=== PATIENT | male | born 1945 | race Caucasian/White ===

== ENCOUNTER 2020-02-17 17:29 | Emergency (ER) | payer MEDICARE, SELFPAY ==
--- NOTE | ~2020-02-17 | XR_ITS ---
XR finger 4th LT min 2V DATE: 02/17/2020 18:47 INDICATION: Slammed fourth digit intra-articular. Distal laceration. TECHNIQUE: 3 views COMPARISON: None FINDINGS: There is a laceration of the distal fourth digit. No radiopaque foreign body is detected. 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 No fracture or dislocation, periosteal reaction or bone destruction. IMPRESSION: Distal fourth digit soft tissue laceration; no radiopaque foreign body, fracture or dislo cation Reviewed, dictated and finalized at location A. IMPRESSION: Distal fourth digit soft tissue laceration; no radiopaque foreign b chuck, fracture or dislocation
[2020-02-17 17:30] VITALS: BP 145/75; PULSE 63; RESP 18; TEMP 37.1; O2SAT 100
[2020-02-17] MEDS: TETANUS,DIPHTHERIA,AC PERTUSSIS ADULT (0.5 ML) BOOSTRIX IM (18:28)
--- NOTE | 2020-02-17 18:40 | ED.WOUNDLAC ---
HPI - Wound/Laceration General Chief Complaint: Wound/Laceration Stated Complaint: lac Time Seen by Provider: 02/17/20 17:51 Source: patient Mode of arrival: ambulatory Limitations: no limitations History of Present Illness HPI narrative: This is a 74 year old male that presents to the ER for laceration to left 4th finger sustained just prior to arrival. Reports he accidentally shut it in the tailgate of a truck. Reports a laceration to the tip of the finger. Does not think he is up-to-date on tetanus. Denies decreased ROM or numbness. Related Data Home Medications Medication Instructions Recorded Confirmed tamsulosin 0.4 mg capsule 0.4 mg PO DAILY 12/14/19 Allergies Allergy/AdvReac Type Severity Reaction Status Date / Time Sulfa (Sulfonamide Allergy Unknown Skin Verified 02/17/20 17:34 Antibiotics) Reaction Review of Systems Review of Systems: Narrative: CONSTITUTIONAL: Denies fever SKIN: Reports laceration NEUROLOGIC: Denies numbness All systems reviewed & are unremarkable except as noted in HPI and below PMFSH Past Medical History Medical History (Updated 02/17/20 @ 19:36 by Drea Yan PA-C) History of prostate cancer Hyperlipidemia, unspecified Social History Social History Smoking status: Former smoker Smoking end date: 07/04/74 Alcohol intake: current Exam Narrative: Exam Narrative: GENERAL: Well-appearing, well-nourished, and in no acute distress. HEAD: Normocephalic, atraumatic. EYES: EOMI. EXTREMITIES: Normal range of motion. Left fourth finger palmar surface over distal phalanx with 3 cm flap laceration into subcutaneous tissue. Normal sensation SKIN: Warm, dry, no rash. NEURO: No focal deficits. Alert and oriented x3. PSYCH: Normal mood and affect Course Vital Signs Vital signs: Vital Signs Temperature 98.7 F 02/17/20 17:30 Pulse Rate 63 02/17/20 17:30 Respiratory Rate 18 02/17/20 17:30 Blood Pressure 145/75 H 02/17/20 17:30 Pulse Oximetry 100 02/17/20 17:30 Temperature 98.7 F 02/17/20 17:30 Pulse Rate 63 02/17/20 17:30 Respiratory Rate 18 02/17/20 17:30 Blood Pressure 145/75 H 02/17/20 17:30 Pulse Oximetry 100 02/17/20 17:30 Procedures Laceration Laceration 1: Date: 02/17/20 Time: 19:37 Site: hand Side (If applicable): left Size (cm): 3 Description: flap Depth: simple, single layer Local Anesthetic: lidocaine 1% Amount of anesthesia used (mL): 4 Pre-repair: irrigated ====== Skin Level ====== Skin layer closed with: nylon Size (cm): 5-0 Number of sutures: 4 Technique: simple, interrupted ====== Subcutaneous Layer ====== ====== Muscle Layer ====== ====== Tendon Layer ====== MDM - Wound/Laceration MDM Narrative Medical decision making narrative: Patient presents to the emergency department for laceration to left fourth finger sustained just prior to arrival. Laceration was irrigated and closed with sutures. Laceration was a flap laceration. Did have a good amount of subcutaneous tissue attached. I suspect will heal well, but did have some contused tissue as well. Left fourth finger x-ray is without acute osseous findings. Patient updated on tetanus. Patient and family educated on wound care. He is to follow-up with primary care doctor. He was given warnings to return to the ER Imaging Data Radiologist's impression: ITS Impressions Finger X-Ray 02/17/20 18:50 IMPRESSION: Distal fourth digit soft tissue laceration; no radiopaque foreign body, fracture or dislocation Critical Care Time Critical Care Time Critical Care Time: No Discharge Plan Discharge Clinical Impression: Laceration Patient Disposition: Home, Self-Care Condition: Stable Instructions: Care For Your Stitches (ED), Laceration (ED) Additional Instruc
[2020-02-17 19:43] VITALS: BP 127/87; PULSE 70; RESP 16; O2SAT 99
== END 2020-02-17 19:45 | disposition home or self-care (01) ==
PROVIDERS: Emergency Provider Emergency Medicine; PCP Family Medicine
DX: S61.215A Laceration without foreign body of left ring finger without damage to nail, initial encounter (principal); Z85.46 Personal history of malignant neoplasm of prostate; E78.5 Hyperlipidemia, unspecified; Z87.891 Personal history of nicotine dependence; Z23 Encounter for immunization; W23.0XXA Caught, crushed, jammed, or pinched between moving objects, initial encounter
CPT/HCPCS: 12002; 73140; 90471; 90715; 99283

== ENCOUNTER 2020-03-13 10:09 | Outpatient (CLI) | payer MEDICARE, SELFPAY ==
--- NOTE | 2020-03-13 10:18 | EST_ITS ---
Patient Info Name: Jr Schilling Age: 74 years : 1945 Gender: Male Ht: 67 in Wt: 160 lbs BSA: 1.86 m2 Exam Date: 03/13/2020 11:19 AM Exam Location: [facility] Stress Patient Status: Outpatient Admit Date: 03/13/2020 Staff Ordering Physician: Davey Olsen PA-C Conservation Engineer: Alia Jose RDCS Attending Provider: Davey Olsen PA-C Exercise Technologist: Freida Pollard RDCS Exercise Physician: Brien Parikh DO Exam Type: CA stress echo Study Info Indications R07.9 - Chest pain, unspecified Treadmill exercise stress echocardiogram is performed. Summary 1. 1. Negative [place] exercise stress test for ischemic ST changes by ECG criteria. 2. 2. Good functional capacity, achieving 8 METs of workload. 3. 3. Baseline hypertension with hypertensive response to exercise. 4. 4. Appropriate HR response with exercise. 5. 5. Appropriate HR recovery at 1 minute post exercise. 6. 6. Negative stress echocardiogram for ischemia by wall motion analysis. 7. 7. Patient informed of the above results. Stress Echo Findings Left Ventricle Appropriate increase in LV endocardial thickening with systole. Appropriate augmentation of contractility with systole. No wall motion abnormality. Left Ventricle Normal LV systolic function, no wall motion abnormality. Protocol: [place] Stress ECG Details Stage: REST Duration (min): 7 min : 11 sec Speed (mph): 0.0 Grade (%): 0 HR (bpm): 45 SBP (mmHg): 167 DBP (mmHg): 79 METS: --- Stage: REST Duration (min): 17 min : 20 sec Speed (mph): 0.0 Grade (%): 0 HR (bpm): 47 SBP (mmHg): 167 DBP (mmHg): 79 METS: --- Stage: STAGE 1 Duration (min): 1 min : 0 sec Speed (mph): 1.7 Grade (%): 10 HR (bpm): 72 SBP (mmHg): 167 DBP (mmHg): 79 METS: --- Stage: STAGE 1 Duration (min): 2 min : 0 sec Speed (mph): 1.7 Grade (%): 10 HR (bpm): 91 SBP (mmHg): 167 DBP (mmHg): 79 METS: --- Stage: STAGE 1 Duration (min): 3 min : 0 sec Speed (mph): 1.7 Grade (%): 10 HR (bpm): 98 SBP (mmHg): 167 DBP (mmHg): 79 METS: --- Stage: STAGE 2 Duration (min): 1 min : 0 sec Speed (mph): 2.5 Grade (%): 12 HR (bpm): 117 SBP (mmHg): 207 DBP (mmHg): 69 METS: --- Stage: STAGE 2 Duration (min): 2 min : 0 sec Speed (mph): 2.5 Grade (%): 12 HR (bpm): 125 SBP (mmHg): 204 DBP (mmHg): 68 METS: --- Stage: STAGE 2 Duration (min): 3 min : 0 sec Speed (mph): 2.5 Grade (%): 12 HR (bpm): 132 SBP (mmHg): 204 DBP (mmHg): 68 METS: --- Stage: STAGE 3 Duration (min): 0 min : 31 sec Speed (mph): 0.0 Grade (%): 0 HR (bpm): 136 SBP (mmHg): 204 DBP (mmHg): 68 METS: --- Stage: RECOVERY Duration (min): 0 min : 28 sec Speed (mph): 0.0 Grade (%): 0 HR (bpm): 116 SBP (mmHg): 211 DBP (mmHg): 73 METS: --- Stage: RECOVERY Duration (min): 1 min : 28 sec Speed (mph):
== END 2020-03-13 10:10 | disposition home or self-care (01) ==
PROVIDERS: PCP Family Medicine; Visit Provider Physician Assistant
DX: R07.9 Chest pain, unspecified (principal)
CPT/HCPCS: 93351

== ENCOUNTER 2022-09-06 09:56 | Outpatient (CLI) | payer MEDICARE, SELFPAY ==
[2022-09-06 12:21] LABS: Kit Draw Collected
== END 2022-09-06 09:57 | disposition home or self-care (01) ==
LOC: ANHGOSHLAB 09:57
PROVIDERS: PCP Family Medicine; Visit Provider Nurse Practitioner
DX: E61.1 Iron deficiency (principal); D64.9 Anemia, unspecified
CPT/HCPCS: 36415

== ENCOUNTER 2024-03-12 13:32 | Outpatient (CLI) | payer MEDICARE, SELFPAY ==
[2024-03-12 14:52] LABS: Basophils Absolute Auto 0.1 K/mm3 (0.0-0.1); Eosinophils Absolute Auto 0.1 K/mm3 (0-0.3); Eosinophils Percent Auto 1.9 % (0-4.4); Hematocrit 43.1 % (42.0-52.0); Hemoglobin 13.6 g/dL (14.0-18.0); Immature Granulocyte Absolute 0.01 K/mm3 (0.00-0.031); Immature Granulocyte Percent A 0.2 % (0-0.5); Lymphocytes Absolute Auto 1.09 K/mm3 (0.9-3.2); Lymphocytes Percent Auto 22.6 % (18.3-44.2); Mean Corpuscular HGB Conc 31.6 g/dl (32-36); Mean Corpuscular Hemoglobin 28.9 pg (26-34); Mean Corpuscular Volume 91.5 fl (80-100); Mean Platelet Volume 11.3 fl (7.4-10.4); Monocytes Absolute Auto 0.6 K/mm3 (0.1-0.6); Monocytes Percent Auto 12.2 % (2.6-8.5); Neutrophils Percent Auto 62.1 % (45.5-73.1); Platelet Count Result 248 k/mm3 (150-375); Red Blood Count 4.71 M/mm3 (4.6-6.20); Red Cell Distribution Width 13.4 % (11.5-14.5); White Blood Count 4.8 K/mm3 (4.5-10.0)
[2024-03-12 15:42] LABS: Alanine Aminotransferase 18 U/L (6-50); Albumin Level 4.4 g/dL (3.5-5.1); Alkaline Phosphatase 78 U/L (38-126); Anion Gap 10 mmol/L (4-12); Aspartate Amino Transferase 34 U/L (17-59); Bilirubin,Total 0.9 mg/dL (0.2-1.3); Blood Urea Nitrogen 16 mg/dL (9-20); Calcium 9.4 mg/dL (8.4-10.2); Carbon Dioxide 28 mmol/L (22-30); Chloride 98 mmol/L (98-107); Cholesterol 160 mg/dL (0-200); Estimated Glomerular Filt Rate 49; Glucose 90 mg/dL (65-110); HDL Direct 57 mg/dL; Potassium 4.5 mmol/L (3.4-5.0); Sodium 136 mmol/L (137-145); Triglycerides 89 mg/dL (<150)
[2024-03-12 15:53] LABS: LDL Cholesterol Direct 79 mg/dL
== END 2024-03-12 13:33 | disposition home or self-care (01) ==
LOC: ANHGOSHLAB 13:33
PROVIDERS: PCP Family Medicine; Visit Provider Family Medicine
DX: C61 Malignant neoplasm of prostate (principal); D36.9 Benign neoplasm, unspecified site; E78.2 Mixed hyperlipidemia
CPT/HCPCS: 36415; 80053; 80061; 85025

== ENCOUNTER 2024-09-12 14:07 | Outpatient (CLI) | payer MEDICARE, SELFPAY ==
--- OUTSIDE RECORDS SUMMARY | 2024-09-12 15:54 | XMS_ITS | Referral Summary ---
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 Prostate cancer 02/23/2017 Cancer Staging:Clinical stage from 02/23/2017:Stage IIA(T1c, N0, M0, PSA: Less than 10, [place] 7) - Signed by Dea Mendez COLD STRIP ROLLER on 03/15/2018 Tinnitus of vascular origin 01/14/2017 Hearing loss 01/11/2017 Resolved Problems Problem Noted Date Diagnosed Date Resolved Date 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 2-4 times a month 08/15/2023 Q2: How many drinks containi ng alcohol do you have on a typical day when you are drinking? 1 or 2 08/15/2023 Q3: How often do you have si x or more drinks on one occasion? Never 08/15/2023 Personal Safety Answer Date Recorded Have you ever been in or are you currently in a harmful physical or emotional relationship or is someone making you feel afraid or unsafe? Denies 08/15/2023 Sex and Gender Information Value Date Recorded Sex Assigned at Not on file Legal Sex Male 11:33 AM CDT Gender Identity Not on file Sexual Orientation Not on file Last Filed Vital Signs Vital Sign Reading Time Taken Comments Blood Pressure 174/92 08/15/2023 2:12 PM INDUSTRIAL SEAMSTRESS Pulse 46 08/15/2023 2:12 PM INDUSTRIAL SEAMSTRESS Temperature 36.1 C (97 F) 08/15/2023 1:44 PM INDUSTRIAL SEAMSTRESS Respiratory Rate 24 08/15/2023 2:12 PM INDUSTRIAL SEAMSTRESS Oxygen Saturation 89% 08/15/2023 2:12 PM INDUSTRIAL SEAMSTRESS Inhaled Oxygen Concentration - - Weight 79.8 kg (175 lb 14.4 oz) 024 10:02 AM CDT Height 177.8 cm (5' 10 ) 08/15/2023 12: 17 PM INDUSTRIAL SEAMSTRESS Body Mass Index 25.24 08/15/2023 12:17 PM INDUSTRIAL SEAMSTRESS Plan of Treatment Not on file Procedures Procedure Name Priority Date/Time Associated Diagnosis Comments COLONOSCOPY 08/15/2023 1:06 PM INDUSTRIAL SEAMSTRESS from Last 3 Months or Most Recently Relevant to Health Maintenance Results * COLONOSCOPY (08/15/2023 1:06 PM INDUSTRIAL SEAMSTRESS) Anatomical Region Laterality Modality Other Narrative Procedure Note Justin Durant MD - 08/15/2023 1:06 PM CST ENDOSCOPY LAB Patient Name: Kirt Schilling Procedure Date: 08/15/2023 1:06 PM Date of : 1945 Admit Type: Outpatient Age: 77 Gender: Male Attending MD: Sharon Fernandez Room: [facility] ENDOSCOPY ROOM 03 Note Status: Finalized Procedure: Colonoscopy Indications: High risk colon cancer surveillance: Personalhistory of multiple (3 or more) adenomas, Last colonoscopy: August 2020, Incidental - Change in bowel habits, history of radiation proctopathy, notes 1-2episodes of rectal bleeding since the last colonoscopy. Providers: Justin Durant M.D. Referring MD: Ramin Perrin M.D. Medicines: Monitored Anesthesia Care Complications: No immediate complications. Estimated Blood Loss: Estimated blood loss was minimal. Procedure: Pre-Anesthesia Assessment: - Prior to the procedure, a History and Physicalwas performed, and patient medications, allergies and sensitivities were reviewed. The patient'stolerance of previous anesthesia was reviewed. The benefits, risks and alternatives of theprocedure and sedation were discussed and informed consentwas obtained. All questions were answered. Please referto the signed informed consent document in the medical record. The scope was passed under direct vision.The [id number] was introduced through the anusand advanced to the cecum, identified by appendiceal orifice and ileocecal valve. The colonoscopy was performed without difficulty. The patient tolerated the procedure well. The quality of the bowel preparation was evaluated using the BBPS (BostonBowel Preparation Scale) with scores of: Right Colon = 3, Transverse Colon = 3 and Left Colon = 3 (entiremucosa seen well with no residual staining, smallfragments of stool or opaque liquid). The total BBPS score equals 9. The bowel preparation used was GoLYTELYvia split dose instruction. Findings: The perianal and digital rectal examinations were normal. Non-bleeding hemorrhoids were found during retroflexion. Thehemorrhoids were small. The mucosa vascular pattern in the distal rectum was locallyincreased. Two sessile polyps were found in the descending colon and transverse colon. The polyps were 3 to 4 mm in size. These polyps were removedwith a cold snare. Resection and retrieval were complete. A 2 mm polyp was found in the ascending colon. The polyp was sessile. The polyp was removed with a cold biopsy forceps. Resection and retrieval were complete. The exam was otherwise without abnormality. Biopsies for histology were taken with a cold forceps from the entire colon for evaluation of microscopic colitis. Impression: - Non-bleeding hemorrhoids. - Increased mucosa vascular pattern in the distal rectum. - Two 3 to 4 mm polyps in the descending colon andin the transverse colon, removed with a cold snare. Resected and retrieved. - One 2 mm polyp in the ascending colon, removedwith a cold biopsy forceps. Resected and retrieved. - The examination was otherwise normal. - Biopsies were taken with a cold forceps from the entire colon for evaluation of microscopiccolitis. Recommendation: - Discharge patient to home. - Await pathology results. - Repeat colonoscopy is not recommended due tocurrent age (66 years or older) for surveillance. - Return to referring physician as previously scheduled. - We performed biopsies during your proceduretoday. If you do not receive the result from my office in, please contact my office at [phone]. Attending Participation: I personally performed the entire procedure. Electronically signed by Justin Durant MD Justin Durant M.D. 08/15/2023 1:44:01 PM Number of Addenda: 0 Note Initiated On: 08/15/2023 1:06 PM Justin Durant MD ENDOSCOPY PROCEDUR ES Final Result from Last 3 Months or Most Recently Relevant to Health Maintenance Insurance MEDICARE [facility] Member Subscriber Plan / Payer ( fective 2018-Present) Name:Joselyn Kirt J Relation to Subscriber:Self Name:JOSELYNLIZBETHKIRT J Payer ID:[id number] (NAIC) Type:[facility] Address: [address] [place] [id number] [facility] MEDICARE BLUE CROSS MEDICARE SUPPLEMENT MEDICARE [facility] Advance Directives For more information, please contact: [phone] * Full Code (Latest Code Status on File) Date Activated Date Inactivated Comments 08/15/2023 12:06 PM 08/15/2023 6:43 PM * Full Code Date Activated Date Inactivated Comments 09/25/2019 9:14 AM 09/25/2019 3:55 PM Care Teams Septic Pump Truck Driver Relationship Specialty Start Date End Date Ramin Perrin MD PCP - General 01/14/17 Dea Mendez NP Nurse Practitioner Radiation Oncology 03/20/18
--- OUTSIDE RECORDS SUMMARY | 2024-09-12 15:54 | XMS_ITS | Clinical Summary ---
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 Rectal bleeding 08/01/2020 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 Prostate cancer 02/23/2017 Cancer Staging:Clinical stage from 02/23/2017:Stage IIA(T1c, N0, M0, PSA: Less than 10, [place] 7) - Signed by Dea Mendez POWERTRAIN DESIGN ENGINEER on 03/15/2018 Tinnitus of vascular origin 01/14/2017 Hearing loss 01/11/2017 Resolved Problems Problem Noted Date Diagnosed Date Resolved Date Asymmetrical sensorineural hearing loss 01/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 03/14/2023 Surgical History Surgery Date Site/Laterality Comments AL TONSILLECTOMY PRIMARY/SEC ONDARY <AGE 12 Tonsillectomy - (Added by TW Conv) CATARACT EXTRACTION COLONOSCOPY POLYPECTOMY Medical History Medical History Date Comments Personal history of other di seases of the nervous system and sense organs History of cataract - (Added by TW Conv) Cancer (HCC) prostate Prostate cancer (HCC) 2017 Hyperlipidemia Cataract Colon polyp Family History Medical History Relation Name Comments Heart failure Father Family history of congestive heart failure - (Added by TW Conv) Heart failure Mother Family history of congestive heart failure - (Added by TW Conv) Relation Name Status Comments Father Mother Social History Tobacco Use Types Packs/Day Years [...] on file Sexual Orientation Not on file Obstetrics History Last Filed Vital Signs Vital Sign Reading Time Taken Comments Blood Pressure 174/92 08/15/2023 2:12 PM RPG DEVELOPER Pulse 46 08/15/2023 2:12 PM RPG DEVELOPER Temperature 36.1 C (97 F) 08/15/2023 1:44 PM RPG DEVELOPER Respiratory Rate 24 08/15/2023 2:12 PM RPG DEVELOPER Oxygen Saturation 89% 08/15/2023 2:12 PM RPG DEVELOPER Inhaled Oxygen Concentration - - Weight 79.8 kg (175 lb 14.4 oz) 024 10:02 AM CDT Height 177.8 cm (5' 10 ) 08/15/2023 12: 17 PM RPG DEVELOPER Body Mass Index 25.24 08/15/2023 12:17 PM RPG DEVELOPER Plan of Treatment Health Maintenance Due Date Last Done Comments Depression Screening 1945 Hepatitis C Screening 1945 DTaP/Tdap/Td Vaccine (1 - Tdap) 1957 Hepatitis B Screening 1964 Pneumococcal vaccine 65+ (1 of 1 - PCV) 1996 Abdominal Aortic Aneurysm (A AA) Screen 10/18/2011 Well Visit 65+ 10/18/2011 Covid-19 Vaccine (2 - 2023-2 5 season) 2024 04/20/2021 Influenza Vaccine (#1) 2024 04/03/2018 Fall Risk Assessment 08/15/2024 08/15/2023 Zoster Vaccine Completed 01/30/2019, 11/14/2018 Colon Cancer Screening-CT Colonography Discontinued 08/15/2023, 08/19/2020, 09/25/2019 Colon Cancer Screening-Colonoscopy Discontinued 08/15/2023, 08/19/2020, 09/25/2019 Colon Cancer Screening-DNA Stool Discontinued 08/15/2023, 08/19/2020, 09/25/2019 Colon Cancer Screening-FIT Discontinued 08/15, 08/19/2020, 09/25/2019 Colon Cancer Screening-FOBT Discontinued 08/04, 08/19/2020, 09/25/2019 Colon Cancer Screening-Sigmoidoscopy Discontinue d 08/15/2023, 08/19/2020, 09/25/2019 Colorectal Cancer Screening Discontinued Procedures Procedure Name Priority Date/Time Associated Diagnosis Comments COLONOSCOPY 08/15/2023 1:06 PM RPG DEVELOPER from Last 3 Months or Most Recently Relevant to Health Maintenance Results * COLONOSCOPY (08/15/2023 1:06 PM RPG DEVELOPER) Anatomical Region Laterality Modality Other Narrative Procedure Note Justin Durant MD - 08/15/2023 1:06 PM CST ENDOSCOPY LAB Patient Name: Kirt Alves Procedure Date: 08/15/2023 1:06 PM Date of : 1945 Admit Type: Outpatient Age: 77 Gender: Male Attending MD: Sharon Fernandez Room: [facility] ENDOSCOPY ROOM 03 Note Status: Finalized [...] The scope was passed under direct vision.The [id number] was introduced through the anusand advanced to [...] office in, please contact my office at [phone]. Attending Participation: I personally performed the entire procedure. Electronically signed by Justin Durant MD Justin Durant M.D. 08/15/2023 1:44:01 PM Number of Addenda: 0 Note Initiated On: 08/15/2023 1:06 PM us Justin Durant MD ENDOSCOPY PROCEDUR ES Final Result from Last 3 Months or Most Recently Relevant to Health Maintenance Insurance MEDICARE [facility] Member Subscriber Plan / Payer ( fective 2018-Present) Name:Tonie Kirt Smita Relation to Subscriber:Self Name:KIRT ALVES Payer ID:[id number] (NAIC) Type:[facility] Address: [address] MEDICARE BLUE CROSS MEDICARE SUPPLEMENT MEDICARE [facility] Advance Directives For more information, please contact: [phone] * Full Code (Latest Code Status on File) Date Activated Date Inactivated Comments 08/15/2023 12:06 PM 08/15/2023 6:43 PM * Full Code Date Activated Date Inactivated Comments 09/25/2019 9:14 AM 09/25/2019 3:55 PM Care Teams Meat Stocker Relationship Specialty Start Date End Date Ramin Perrin MD PCP - General 01/14/17 Dea Mendez NP Nurse Practitioner Radiation Oncology 03/20/18
--- OUTSIDE RECORDS SUMMARY | 2024-09-12 15:54 | XMS_ITS | Clinical Summary ---
Author Organization [facility] Address [address] [place] [id number] Care Team Providers Care Beef Skinner Name Role Phone Unavailable Primary Care Provider Unavailabl e Immunizations Immunization Administration Dates Next Due Covid-19, Mrna, Lnp-s, Pf, 30 Mcg/0.3 Ml Dose (P nellazer) 04/20/2021 Social History Tobacco Use Types Packs/Day Years Used Date Smoking Tobacco: Never Assessed Sex and Gender Information Value Date Recorded Sex Assigned at Not on file Legal Sex Male 10:05 AM CDT Gender Identity Not on file Sexual Orientation Not on file Plan of Treatment Health Maintenance Due Date Last Done Comments Hepatitis C Virus (HCV) Screening 1945 Pneumococcal Immunization (50+ years) (1 of 1 - PCV) 1996 Respiratory Syncytial Virus (RSV) Immunization (Adult) (1 - 1-dose 75+ series) 2021 Influenza Immunization (#1) 2024 10/0 01/2021, 04/18/2019, 04/03/2018 SARS-COV-2 Immunization ( season) 2024 04/20/2021, 09/11/2020, 08/20/2020 Zoster Immunization Completed 01/30/2019, 11/14/2018 DTaP/Tdap/Td Immunization Discontinued 02/17/2020 TdaP Immunization Completed 02/17/2020 Hepatitis B Immunization Aged Out No longer eligible based on patient's age to complete this topic Meningococcal Immunization (ACWY) Aged Out No longer eligible based on patient's age to complete this topic Rotavirus Immunization Aged Out No lo nger eligible based on patient's age to complete this topic
--- OUTSIDE RECORDS SUMMARY | 2024-09-12 15:54 | XMS_ITS ---
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 Past Treatment and Therapy Plans No past plan information found. 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
[2024-09-12 18:33] LABS: Basophils Absolute Auto 0.1 K/mm3 (0.0-0.1); Basophils Percent Auto 1.4 % (0.2-1.2); Eosinophils Absolute Auto 0.1 K/mm3 (0-0.3); Eosinophils Percent Auto 2.2 % (0-4.4); Hemoglobin 12.8 g/dL (14.0-18.0); Immature Granulocyte Absolute 0.01 K/mm3 (0.00-0.031); Immature Granulocyte Percent A 0.2 % (0-0.5); Immature Reticulocyte Fraction 15.8 % (3.0-15.9); Lymphocytes Absolute Auto 1.07 K/mm3 (0.9-3.2); Lymphocytes Percent Auto 21.4 % (18.3-44.2); Mean Corpuscular Hemoglobin 28.4 pg (26-34); Mean Corpuscular Volume 88.9 fl (80-100); Mean Platelet Volume 11.2 fl (7.4-10.4); Monocytes Absolute Auto 0.6 K/mm3 (0.1-0.6); Neutrophils Absolute Auto 3.2 K/mm3 (1.3-6.7); Neutrophils Percent Auto 63.8 % (45.5-73.1); Platelet Count Result 227 k/mm3 (150-375); Red Cell Distribution Width 14.1 % (11.5-14.5); Reticulocyte Hemoglobin Conten 32.3 pg (28.2-36.6); Reticulocyte Percent 1.27 % (0.7-4.3); Reticulocytes Absolute 0.06 10^6/uL (0.02-0.10)
[2024-09-12 18:42] LABS: Alanine Aminotransferase 20 U/L (6-50); Alkaline Phosphatase 83 U/L (38-126); Anion Gap 8 mmol/L (4-12); Aspartate Amino Transferase 30 U/L (17-59); Bilirubin,Total 0.7 mg/dL (0.2-1.3); Blood Urea Nitrogen 23 mg/dL (9-20); Calcium 8.9 mg/dL (8.4-10.2); Carbon Dioxide 29 mmol/L (22-30); Chloride 103 mmol/L (98-107); Cholesterol 144 mg/dL (0-200); Estimated Glomerular Filt Rate 58; Glucose 89 mg/dL (65-110); HDL Direct 44 mg/dL; Potassium 4.5 mmol/L (3.4-5.0); Sodium 140 mmol/L (137-145); Triglycerides 104 mg/dL (<150)
[2024-09-12 18:49] LABS: Iron 141 ug/dL (49-181)
[2024-09-12 18:54] LABS: LDL Cholesterol Direct 75 mg/dL
[2024-09-12 19:03] LABS: Percent Iron Saturation 36 % (20-50)
== END 2024-09-12 14:08 | disposition home or self-care (01) ==
LOC: ANHGOSHLAB 14:08
PROVIDERS: PCP Family Medicine; Visit Provider Family Medicine
DX: E78.2 Mixed hyperlipidemia (principal); D64.9 Anemia, unspecified; I10 Essential (primary) hypertension; E78.5 Hyperlipidemia, unspecified
CPT/HCPCS: 36415; 80053; 80061; 83540; 83550; 85025; 85046